=== PATIENT | male | born 1940 | race Caucasian/White ===

== ENCOUNTER → 2016-07-19 | Day surgery (SDC) | payer MEDICARE, OTHER ==
[~2016-07-19] MED LIST: AMLODIPINE BESYL5 MG PO; ASPIRIN PO; ASPIRIN81 M2 PO; ATROVENT15 ML NS; GLUCOTROL XL PO; HCTZ PO; IPRATROPIUM BR42 MCG NS; LIPITOR PO; LISINOPRIL PO; MEN'S 50+ DAIL1 EACH PO; METFORMIN HCL500 M1 PO; PANTOPRAZOLE SO40 MG PO; SIMVASTATIN20 MG PO; ZOCOR PO
--- NOTE | ~2016-07-19 | OR ---
Unit #: [id number] #: [id number] Patient: HORTENCIA MENDEZ [id number] [address] [place], [place] [address] [id number] MR#: [id number] NAME: HORTENCIA MENDEZ ROOM: Date of Procedure: 07/19/2016 Admission Date: 07/19/2016 Surgeon: Miller Franklin M.D. : 1940 Attending Physician: Miller Franklin M.D. Primary Care Physician: Heidy Bellamy M.D. OPERATIVE REPORT PROCEDURES PERFORMED Esophagogastroduodenoscopy with biopsy and colonoscopy with snare polypectomy. INDICATIONS FOR PROCEDURE A 75-year-old gentleman with family history of colon cancer, also with GERD and previously noted esophageal nodule, undergoing evaluation with upper endoscopy and colonoscopy. MEDICATIONS Monitored anesthesia. POSTOPERATIVE FINDINGS 1. No nodules noted. Small areas of Villa like mucosa seen in distal esophagus. Biopsies taken at GE junction and right above it. 2. Several small gastric ulcers were noted in the antral area along with significant gastritis. Biopsies taken looking for H pylori. 3. Normal duodenum and distal duodenum. 4. Colonoscopy completed to cecum. Prep was poor in some areas. 5. Flat 6 mm polyp, ascending colon, snared and sent for histopathology. 6. Rest of the colonic mucosa was normal. PLAN Follow up on the pathology report. Continue PPI therapy. DESCRIPTION OF PROCEDURE The patient was explained of the procedure, risks, and benefits along with risks and benefits of anesthesia. He was brought to the endoscopy room. Propofol anesthesia was given. Bite block was placed. The scope was passed down the mouth into the esophagus, stomach, duodenum, and distal duodenum. Findings as described. Biopsies taken. Gently, I pulled the scope out of the patient's mouth. He tolerated it well. At this time, he was turned around and repositioned for colonoscopy. Rectal exam was done, which was normal. Colonoscope was lubricated, passed up the rectum, advanced under direct vision all the way to the cecum. Cecum was identified by ileocecal valve and appendiceal orifice. Prep was poor area and some other areas. Small polyp seen in ascending colon was snared and sent for histopathology. Rest of the mucosa was normal. I retroflexed in the rectum, internal hemorrhoids were noted. Gently, the scope was pulled out. He tolerated it well. No major complications were seen. Unit #: [id number] #: [id number] Patient: HORTENCIA MENDEZ Dictated by... Aníbal Griffin/steph TD: 07/19/2016 23:08 JOB #: [id number] OPERATIVE REPORT Page 1 of 1 X Miller Franklin MD PROCEDURE OPERATIVE NOTE
== END | disposition home or self-care (01) ==
LOC: COPS 06-13 14:00
DX: Z12.11 Encounter for screening for malignant neoplasm of colon (principal); D12.2 Benign neoplasm of ascending colon; K29.50 Unspecified chronic gastritis without bleeding; K21.0 Gastro-esophageal reflux disease with esophagitis; K64.8 Other hemorrhoids; E11.9 Type 2 diabetes mellitus without complications; I25.10 Atherosclerotic heart disease of native coronary artery without angina pectoris; F17.210 Nicotine dependence, cigarettes, uncomplicated; Z86.010 Personal history of colon polyps; Z80.0 Family history of malignant neoplasm of digestive organs; Z79.82 Long term (current) use of aspirin; Z79.84 Long term (current) use of oral hypoglycemic drugs; Z79.899 Other long term (current) drug therapy; Z98.890 Other specified postprocedural states
CPT/HCPCS: 82947; 88305; 88312